=== PATIENT | female | born 1995 | race Caucasian/White ===

== ENCOUNTER 2020-08-12 06:06 | Emergency (ER) | payer MEDICAID ==
[~2020-08-12] VITALS: Ht 152.4 cm; Wt 49.9 kg
[2020-08-12] MEDS ORDERED: NALOXONE HCL 0.4 MG/ML AMPUL ONE ×2 (06:17→06:49)
--- NOTE | 2020-08-12 06:20 | NUR ---
information technology audit manager to take x-rays at bedside.
--- NOTE | 2020-08-12 06:27 | NUR ---
[employer] at bedside interviewing patient.
[2020-08-12] MEDS ORDERED: IV NS 1000 ML 1,000 ML IV ONE (06:30)
[2020-08-12] MEDS ORDERED: NALOXONE HCL 0.4 MG/ML AMPUL IV ONE (06:30)
[2020-08-12] MEDS ORDERED: NALOXONE HCL 0.4 MG/ML AMPUL IM ONE (06:45)
[2020-08-12 07:06] LABS: BASOPHILS % (AUTO) 0.3 % (0.0-2.0); HEMATOCRIT 35.6 % (31.2-41.9); HEMOGLOBIN 12.5 g/dL (10.9-14.3); MEAN CORPUSCULAR HEMOGLOBIN 31.4 uug (24.7-32.8); MEAN CORPUSCULAR HGB CONC 35 g/dL (32.3-35.6); MEAN CORPUSCULAR VOLUME 89.2 fL (75.5-95.3); MONOCYTES # (AUTO) 0.7 K/uL (2.0-10.0); MONOCYTES % (AUTO) 5.9 % (0.0-11.0); NEUTROPHILS # (AUTO) 8.4 K/uL (1.8-8.9); NEUTROPHILS % (AUTO) 75.8 % (38.5-71.5); PLATELET COUNT (AUTO) 286 K/uL (179-408); RED BLOOD CELL COUNT(AUTO) 3.99 MIL/uL (3.63-4.92); WHITE BLOOD COUNT (AUTO) 11.1 K/uL (3.8-11.8)
[2020-08-12 07:13] LABS: CARBON DIOXIDE 25 mmol/L (21-32); CHLORIDE 101 mmol/L (98-107); CREATININE 0.9 mg/dL (0.6-1.3); GLUCOSE 90 mg/dL (74-106); POTASSIUM 3.8 mmol/L (3.5-5.1); UREA NITROGEN, BLOOD 16 mg/dL (7-18)
[2020-08-12 07:14] LABS: ETHANOL < 3 MG/DL (0-0)
--- NOTE | 2020-08-12 07:15 | NUR ---
Report given to VICKY Montanez.
[2020-08-12 07:20] LABS: ALANINE AMINOTRANSFERASE 24 U/L (14-59); ALKALINE PHOSPHATASE 79 U/L (50-136); ASPARTATE AMINOTRANSFERASE 21 U/L (15-37); BILIRUBIN,DIRECT 0.2 mg/dL (0.0-0.2); BILIRUBIN,TOTAL 0.6 mg/dL (0.2-1.0); CREATINE KINASE, TOTAL 85 U/L (26-192); TOTAL PROTEIN, SERUM 7.4 g/dL (6.4-8.2)
--- NOTE | 2020-08-12 07:45 | NUR ---
PT DECIDED TO LEAVE HOSPITAL AMA. DR HERMOSILLO EXPLAINED ALL RISKS OF LEAVING HOSPITAL AMA TO THE PT. PT VERBALIZED FULL UNDERSTANDING. PT SIGNED AMA FORM AN LEFT HOSPITAL WITH HER BOYFRIEND. GAIT IS STABLE, NO N/V, NO SOB, PT DENIES PAIN, NO DIZZINESS.
[2020-08-12 07:47] VITALS: BP 139/68
== END 2020-08-12 07:48 | disposition left against medical advice (07) ==
LOC: ER 06:07
DX: R06.02 Shortness of breath (principal); T40.415A Adverse effect of fentanyl or fentanyl analogs, initial encounter; F11.20 Opioid dependence, uncomplicated; Y92.410 Unspecified street and highway as the place of occurrence of the external cause; Z59.0 Homelessness
CPT/HCPCS: 71045; 80048; 80076; 80307; 80320; 82550; 82962; 83605; 84702; 85025; 93005; 96372; 99285; J2310 ×2; 36415; A4663; G0480